=== PATIENT | female | born 1970 | race Caucasian/White ===

== ENCOUNTER 2016-10-12 11:17 | Emergency (ER) | payer MEDICAID, SELFPAY ==
[2016-10-12] MEDS ORDERED: GLUCOPHAGE500 M3 PO (11:49)
[2016-10-12] MEDS ORDERED: LATUDA40 M1 PO (11:49)
[2016-12-08] MEDS ORDERED: ULTRAM50 M1 PO (09:08)
[2016-12-08] MEDS ORDERED: TYLENOL EXTRA500 M1 PO (09:08)
== END 2016-10-12 12:56 ==
LOC: EDMED 11:17
DX: R59.0 Localized enlarged lymph nodes (principal); E11.9 Type 2 diabetes mellitus without complications

== ENCOUNTER 2016-12-01 05:54 | Day surgery (SDC) | payer MEDICAID, SELFPAY ==
[~2016-12-01 05:54] MED LIST: GLUCOPHAGE500 M3 PO; LATUDA40 M1 PO
[2016-12-01 07:40] LABS: BASO % 0.2 % (0-2); EOS % 0.6 % (0-7); EOSINOPHIL ABSOLUTE COUNT 0.1 tho/cmm (0.0-0.7); HCT-HEMATOCRIT 40.1 % (34.0-49.0); HGB-HEMOGLOBIN 13.8 gm/dl (12.0-15.5); IMMATURE GRANULOCYTES ABSOLUTE 0.02 tho/cmm (0-0.03); IMMATURE GRANULOCYTES PERCENT 0.2 % (0-0.3); LYMPH % 27.7 % (20-45); LYMPH ABSOLUTE COUNT 2.6 tho/cmm (0.8-4.5); MCH (MEAN CORPUSCULAR HGB) 29.5 pg (28.0-32.0); MCHC MEAN CORPUSCULAR HGB CONC 34.4 % (32.0-36.0); MCV (MEAN CELL VOLUME) 85.7 fl (82.0-96.0); MEAN PLATELET VOLUME 9.5 cmc (9.4-12.4); MONOCYTE ABSOLUTE COUNT 0.7 tho/cmm (0.0-1.2); NEUTROPHILS % 64.3 % (40-80); PLATELET COUNT 310 tho/cmm (150-450); RED BLOOD COUNT 4.68 mil/cmm (4.00-5.20); RED CELL DISTRIBUTION WIDTH 13.2 % (12.4-16.4); WHITE BLOOD COUNT 9.3 tho/cmm (4.0-10.0)
[2016-12-01 07:50] LABS: ANION GAP 12 mmol/L (0-20); BLOOD UREA NITROGEN 11 mg/dl (6-24); CALCIUM 9.1 mg/dl (8.5-10.5); CARBON DIOXIDE-VENOUS 23 mmol/L (22-32); CHLORIDE 109 mmol/l (96-110); CREATININE 0.59 mg/dl (0.50-1.10); GLUCOSE 121 mg/dL (70-110); SODIUM 140 mmol/L (135-145); eGFR VALUE FOR BLACK >90 mL/Min
[2016-12-01 07:51] LABS: POTASSIUM 3.9 mmol/L (3.7-5.1)
[2016-12-08] MEDS ORDERED: ULTRAM50 M1 PO (09:08)
[2016-12-08] MEDS ORDERED: TYLENOL EXTRA500 M1 PO (09:08)
== END 2016-12-01 12:25 ==
LOC: SHSC 05:54 → ORE 08:35 → PACU 09:14 → SHSC 09:45
PROVIDERS: Anesthesiology
PROC: 0CBM8ZX Excision of Pharynx, Via Natural or Artificial Opening Endoscopic, Diagnostic (ICD-10-PCS; principal; 2016-12-01)
DX: J35.1 Hypertrophy of tonsils (principal); E11.9 Type 2 diabetes mellitus without complications; F41.9 Anxiety disorder, unspecified; F31.9 Bipolar disorder, unspecified; K21.9 Gastro-esophageal reflux disease without esophagitis; F17.210 Nicotine dependence, cigarettes, uncomplicated; Z79.84 Long term (current) use of oral hypoglycemic drugs; Z79.899 Other long term (current) drug therapy; Z88.0 Allergy status to penicillin; Z88.1 Allergy status to other antibiotic agents; Z98.890 Other specified postprocedural states
CPT/HCPCS: J0171

== ENCOUNTER 2016-12-10 09:49 | Day surgery (SDC) | payer MEDICAID, SELFPAY ==
[~2016-12-10 09:49] MED LIST changes: +TYLENOL EXTRA500 M1 PO; +ULTRAM50 M1 PO
[2016-12-10 11:07] LABS: BASO % 0.3 % (0-2); EOS % 0.7 % (0-7); EOSINOPHIL ABSOLUTE COUNT 0.1 tho/cmm (0.0-0.7); HCT-HEMATOCRIT 42.3 % (34.0-49.0); HGB-HEMOGLOBIN 14.7 gm/dl (12.0-15.5); IMMATURE GRANULOCYTES ABSOLUTE 0.01 tho/cmm (0-0.03); IMMATURE GRANULOCYTES PERCENT 0.1 % (0-0.3); LYMPH % 29.2 % (20-45); LYMPH ABSOLUTE COUNT 2.6 tho/cmm (0.8-4.5); MCH (MEAN CORPUSCULAR HGB) 29.9 pg (28.0-32.0); MCHC MEAN CORPUSCULAR HGB CONC 34.8 % (32.0-36.0); MCV (MEAN CELL VOLUME) 86.2 fl (82.0-96.0); MEAN PLATELET VOLUME 9.5 cmc (9.4-12.4); MONO % 6.9 % (0-12); MONOCYTE ABSOLUTE COUNT 0.6 tho/cmm (0.0-1.2); NEUTROPHIL ABSOLUTE COUNT 5.6 tho/cmm (1.6-8.0); NEUTROPHIL-AUTOMATED 5.6 tho/cmm (1.6-8.0); NEUTROPHILS % 62.8 % (40-80); PLATELET COUNT 281 tho/cmm (150-450); RED BLOOD COUNT 4.91 mil/cmm (4.00-5.20); RED CELL DISTRIBUTION WIDTH 13.2 % (12.4-16.4); WHITE BLOOD COUNT 8.9 tho/cmm (4.0-10.0)
[2016-12-10 11:24] LABS: INR 0.8 INR (0.9-1.1); PROTHROMBIN TIME 9.7 SECONDS (9.0-13.6)
[2016-12-10 11:35] LABS: ALBUMIN 3.9 g/dl (3.5-5.0); ALKALINE PHOSPHATASE 83 U/L (33-138); ALT/SGPT 34 U/L (12-78); ANION GAP 13 mmol/L (0-20); AST/SGOT 19 U/L (10-40); BILIRUBIN,TOTAL 0.4 mg/dl (0-1.5); BLOOD UREA NITROGEN 12 mg/dl (6-24); CALCIUM 9.3 mg/dl (8.5-10.5); CARBON DIOXIDE-VENOUS 23 mmol/L (22-32); CHLORIDE 109 mmol/l (96-110); CREATININE 0.53 mg/dl (0.50-1.10); GLUCOSE 100 mg/dL (70-110); POTASSIUM 4.4 mmol/L (3.7-5.1); SODIUM 141 mmol/L (135-145); eGFR VALUE FOR BLACK >90 mL/Min
[2016-12-10 12:57] LABS: URINE BILIRUBIN NEGATIVE (NEG); URINE BLOOD NEGATIVE (NEG); URINE GLUCOSE (UA) NEGATIVE (NEG); URINE KETONE NEGATIVE (NEG); URINE LEUKOCYTE ESTERASE POSITIVE (NEG); URINE NITRITE NEGATIVE (NEG); URINE PROTEIN NEGATIVE (NEG); URINE SPECIFIC GRAVITY 1.015 (1.003-1.030)
[2016-12-10 13:15] LABS: URINE APPEARANCE CLEAR; URINE COLOR YELLOW
[2016-12-10 13:48] LABS: URINE EPITHELIAL CELLS 0-1 /[HPF] (0-10); URINE RBC 0 /[HPF] (0-5); URINE WBC 0-1 /[HPF] (0-5)
== END 2016-12-10 14:00 ==
LOC: SHSB 09:49
PROVIDERS: Internal Medicine Medical Oncology; Radiology Diagnostic Radiology
PROC: 0JH60XZ Insertion of Tunneled Vascular Access Device into Chest Subcutaneous Tissue and Fascia, Open Approach (ICD-10-PCS; principal; 2016-12-10)
PROC: 02HV33Z Insertion of Infusion Device into Superior Vena Cava, Percutaneous Approach (ICD-10-PCS; 2016-12-10)
PROC: B548ZZA Ultrasonography of Superior Vena Cava, Guidance (ICD-10-PCS; 2016-12-10)
DX: C49.0 Malignant neoplasm of connective and soft tissue of head, face and neck (principal); C77.0 Secondary and unspecified malignant neoplasm of lymph nodes of head, face and neck; E11.9 Type 2 diabetes mellitus without complications; F32.9 Major depressive disorder, single episode, unspecified; F41.9 Anxiety disorder, unspecified; F17.210 Nicotine dependence, cigarettes, uncomplicated; Z88.0 Allergy status to penicillin; Z88.1 Allergy status to other antibiotic agents; Z98.890 Other specified postprocedural states
CPT/HCPCS: C1788; J2250; J3010; J7030